=== PATIENT | male | born 1995 | race Caucasian/White ===

== ENCOUNTER 2018-12-29 23:31 | Emergency (ER) | payer OTHER ==
[2018-12-29 23:45] VITALS: BP 145/104; PULSE 121; TEMP 98; BMI 22.2
--- NOTE | 2018-12-29 23:52 | PDOC ---
History of Present Illness - General Chief Complaint: CVA/TIA Stated Complaint: NUMBNESS Time Seen by Provider: 12/29/18 23:52 History Source: Patient Exam Limitations: No Limitations - History of Present Illness Initial Comments: 12/30/18 02:39 23M with no significant PMH presents w/ complaint of all-over numbness x4days. 5d prior, used a THC pen that caused a sensation of generalized all-over numbness. Endorses feeling anxious at baseline. Denies gait abnormality, weakness in extremities, trouble with fine motor function. Denies recent sickness. Brother had a cough, 2 weeks prior. Past History - Travel Traveled outside of the country in the last 30 days: No Close contact w/someone who was outside of country & ill: Yes Do you know what country they traveled to?: [place], grandpr w/ cough - Past Medical History Allergies/Adverse Reactions: Allergies Allergy/AdvReac Type Severity Reaction Status Date / Time shellfish derived Allergy Verified 12/29/18 23:43 Home Medications: Ambulatory Orders NK [No Known Home Medication] 07/06/15 - Surgical History Appendectomy: Yes - Family Disease History Family Disease History: Diabetes: Grandparents, Father, Heart Disease: Grandparents, Other: Sister (throat Ca, lung Ca) - Immunization History Immunization Up to Date: Yes - Suicide/Smoking/Psychosocial Hx Smoking History: Never smoked Have you smoked in the past 12 months: No Information on smoking cessation initiated: No Hx Alcohol Use: No Drug/Substance Use Hx: No Substance Use Type: None Review of Systems - Review of Systems Able to Perform ROS?: No Is the patient limited Danish proficient: No Constitutional: Yes: Malaise. No: Chills, Fever HEENTM: No: Eye Pain, Blurred Vision, Difficulty Swallowing Respiratory: No: Cough, Orthopnea Cardiac (ROS): No: Chest Pain, Irregular Heart Rate, Chest Tightness ABD/GI: No: Abdominal Distended, Constipated, Diarrhea : No: Burning, Incontinence Musculoskeletal: No: Back Pain, Muscle Pain Neurological: Yes: Numbness (diffuse all over numbness) *Physical Exam - Vital Signs Last Vital Signs Temp Pulse Resp BP Pulse Ox 98.0 F 121 H 18 145/104 H 100 12/29/18 23:44 12/29/18 23:44 12/29/18 23:44 12/29/18 23:44 12/29/18 23:44 - Physical Exam General Appearance: Yes: Nourished, Other (anxious-appearing). No: Apparent Distress HEENT: positive: Normal Voice. negative: Pale Conjunctivae, Scleral Icterus (R) , Scleral Icterus (L), Nasal Congestion, Rhinorrhea Neck: positive: Trachea midline Respiratory/Chest: positive: Lungs Clear, Normal Breath Sounds. negative: Respiratory Distress, Labored Respiration Cardiovascular: positive: Regular Rhythm, Regular Rate, S1, S2 Gastrointestinal/Abdominal: positive: Soft. negative: Distended, Guarding, Tenderness Musculoskeletal: negative: Decreased Range of Motion Extremity: positive: Normal Inspection, Normal Range of Motion. negative: Cyanosis, Calf Tenderness Integumentary: positive: Dry, Warm Neurologic: positive: para educator II-XII NML intact, Fully Oriented, Alert, Motor Strength 5/5, Other (normal gait) Medical Decision Making - Medical Decision Making 12/30/18 06:09 - EKG shows sinus tachycardia - repeat vitals HR 102, BP 135/89 - slightly less anxious after Ativan PO - agreeable to discharge with fu with PCP, psych *DC/Admit/Observation/Transfer Diagnosis at time of Disposition: Anxiety - Discharge Dispostion Disposition: HOME Condition at time of disposition: Stable Decision to Admit order: No - Referrals Referrals: Everton May [Non Staff, Medical] - Kandis Oropeza MD [Staff Physician] - - Patient Instructions Printed Discharge Instructions: DI for Numbness/tingling Additional Instructions: You were evaluated for generalized numbness. Your physical exam findings did not reveal any focal neurological deficits. Your EKG showed a slightly elevated heart rate but no signs of heart damage. You were given Ativan for relaxation. Likely your symptoms were related to your recent THC usage. Your symptoms should improve gradually. Please return to the ED if you experience: - severe worsening numbness that prevents performing your daily routine - focal neurological deficits affect a single extremity - severe fever/chills Print Language: KHMER - Post Discharge Activity
--- NOTE | 2018-12-30 00:21 | PDOC ---
Documentation entered by Arnav Marshall SCRIBE, acting as scribe for Chris Palomo MD. Chris Palomo MD: This documentation has been prepared by the Rolando hairston Elijah, SCRIBE, under my direction and personally reviewed by me in its entirety. I confirm that the documentation accurately reflects all work, treatment, procedures, and medical decision making performed by me. Attending Attestation - Resident Resident Name: Oscar Bella - ED Attending Attestation I have performed the following: I have examined & evaluated the patient, The case was reviewed & discussed with the resident, I agree w/resident's findings & plan - HPI HPI: 12/30/18 05:07 23M here with several days of generalized numbness/tingling. Pt states symptoms started after vaping THC. No chest pain, sob, weakness - Physicial Exam PE: 12/30/18 05:08 Agree with exam as documented by resident - Medical Decision Making 12/30/18 05:08 No specific complaint, non-focal exam f/u ekg symptomatic tx re-eval 12/30/18 07:25 symptomatic improvement dc
[2018-12-30] MEDS ORDERED: LORazepam 1 MG TABLET PO ONE (00:31)
[2018-12-30] MEDS ORDERED: LORazepam 0.5 MG TABLET ONE (00:35)
--- NOTE | 2018-12-30 13:55 | EKG ---
Test Reason : Blood Pressure : / mmHG Vent. Rate : 108 BPM Atrial Rate : 108 BPM P-R Int : 166 ms QRS Dur : 082 ms QT Int : 322 ms P-R-T Axes : 064 040 034 degrees QTc Int : 431 ms SINUS TACHYCARDIA WHEN COMPARED WITH ECG OF 06-JUL-2015 19:11, RSR' PATTERN IN V1 IS NO LONGER PRESENT Confirmed by IRWIN WILLS MD ([id number]) on 12/30/2018 1:55:24 PM Referred By: Confirmed By:IRWIN WILLS MD
== END 2018-12-30 03:22 | disposition home or self-care (01) ==
LOC: JER 23:31
DX: F41.9 Anxiety disorder, unspecified (principal)
CPT/HCPCS: 93005; 93010; 99282-25

== ENCOUNTER 2019-05-20 20:31 | Emergency (ER) | payer OTHER ==
[2019-05-20 20:40] VITALS: BP 135/92; PULSE 101; TEMP 99; BMI 22.4
--- NOTE | 2019-05-20 21:29 | PDOC ---
Documentation entered by Ana Martinez SCRIBE, acting as scribe for Ellie Sadler MD. Ellie Sadler MD: This documentation has been prepared by the srinathibe, Ana Martinez SCRIBE, under my direction and personally reviewed by me in its entirety. I confirm that the documentation accurately reflects all work, treatment, procedures, and medical decision making performed by me. History of Present Illness - General Chief Complaint: Head/Neck problem Stated Complaint: NUMBNESS TO EXTREMITIES Time Seen by Provider: 05/20/19 20:33 - History of Present Illness Initial Comments: 05/20/19 21:02 Patient is a 23 year old male with no significant past medical history who presents to the emergency department with his mom at bedside, with numbness and tingling in his extremities. Patient states these symptoms have happened to him in the past and he has given a full work up with no significant findings. He denies any recent fevers, chills, headache or dizziness. He denies any recent nausea, vomit, diarrhea or constipation. He denies any recent chest pain or shortness of breath. He denies any recent dysuria, frequency, urgency or hematuria. Primary Care Physician: Logan May PAST MEDICAL HISTORY: no significant history PAST SURGICAL HISTORY: Appendectomy. FAMILY HISTORY: no pertinent history SOCIAL HISTORY: Pt lives with family and is employed. MEDICATIONS: reviewed ALLERGIES: As per nursing notes General: No fevers or chills, no weakness, no weight loss HEENT: No change in vision. No sore throat,. No ear pain CardioVascular: No chest pain or shortness of breath Respiratory:No cough, or wheezing. Gastrointestinal: no nausea, vomiting, diarrhea or constipation, No rectal bleeding Genitourinary: No dysuria, hematuria, or frequency Musculoskeletal: No joint or muscle pain or swelling Neurologic:+ generalized numbness and tingling. No headache, vertigo, dizziness or loss of consciousness Psychiatric: nor depression Skin: No rashes or easy bruising Endocrine: no increased thirst or abnormal weight change Allergic: no skin or latex allergy All other systems reviewed and normal NEURO: Mental status: The patient alert and is oriented x3. Cranial nerves: Cranial nerves II through XII are intact Fundoscopic exam normal Motor: The upper extremities are 5 over 5 in all muscle groups. The lower extremities are 5 over 5 in all muscle groups. Sensation: Sensation is intact to light touch throughout. Cerebellar: Yixeck-ayodao-mwgh is normal in both upper extremities. Heel-knee- galarza is normal in both lower extremities. Gait: Normal. Heel and toe walking are normal. Tandem gait is normal. 05/20/19 21:26 Assessment and plan: This is a 23-year-old male who comes in complaining of numbness times several months. Numbness is intermittent and comes and goes. The numbness is actually more of a osxk-luq-bsallcy sensation than actual numbness. On my exam patient did not exhibit any numbness but did reports a pins and needle sensation to light touch of his face and bilateral upper and lower extremities. Otherwise patient's neuro exam was negative Discussed with patient the importance of following up with a neurologist to rule out unusual neurological condition such as MS. Patient will contact his primary care doctor and get a referral to the neurologist and follow-up with the neurologist. Patient has had multiple ED visits and work-ups including CAT scan for the his complaints 05/20/19 21:28 Past History - Past Medical History Allergies/Adverse Reactions: Allergies Allergy/AdvReac Type Severity Reaction Status Date / Time shellfish derived Allergy Verified 12/29/18 23:43 Home Medications: Ambulatory Orders NK [No Known Home Medication] 07/06/15 COPD: No - Surgical History Appendectomy: Yes - Immunization History Immunization Up to Date: Yes - Psycho Social/Smoking Cessation Hx Smoking History: Never smoked Have you smoked in the past 12 months: No Hx Alcohol Use: No Drug/Substance Use Hx: No Substance Use Type: None *Physical Exam - Vital Signs Last Vital Signs Temp Pulse Resp BP Pulse Ox 99 F 101 H 16 135/92 100 05/20/19 20:32 05/20/19 20:32 05/20/19 20:32 05/20/19 20:32 05/20/19 20:32 Discharge - Discharge Information Problems reviewed: Yes Clinical Impression/Diagnosis: Numbness and tingling Condition: Stable - Admission No - Follow up/Referral Referrals: Logan May MD [Primary Care Provider] - - Patient Discharge Instructions Additional Instructions: Call your doctor on Wednesday and get a referral to a neurologist. Call the neurologist and get an appointment for soon as you can get in it may take a while to get in as most neurologists are booked well in advance. Return to the emergency department immediately with ANY new, persistent or worsening symptoms. Continue any medications as previously prescribed by your physician. You should follow up with your primary doctor as soon as possible regarding today's emergency department visit. . Please make sure your doctor reviews the results of your emergency evaluation. Thank you for coming to the Emergency Department today for your care. It was a pleasure to see you today. Please note that your evaluation is INCOMPLETE until you follow-up with your doctor. - Post Discharge Activity
== END 2019-05-20 21:34 | disposition home or self-care (01) ==
LOC: FER 20:31
DX: R20.0 Anesthesia of skin (principal); R20.2 Paresthesia of skin; Z91.013 Allergy to seafood
CPT/HCPCS: 99281-25

== ENCOUNTER 2020-06-22 12:28 | Emergency (ER) | payer OTHER ==
[2020-06-22 12:54] VITALS: BMI 21.9
[2020-06-22] MEDS ORDERED: SODIUM CHLORIDE 1,000 ML IV STA (13:14)
[2020-06-22] MEDS ORDERED: ONDANSETRON 4 MG/2 ML VIAL IVPUSH ONE (13:53)
[2020-06-22] MEDS ORDERED: ONDANSETRON 4 MG/2 ML VIAL ONE (14:03)
[2020-06-22 14:30] LABS: BASO % 0.5 % (0-2.0); EOS % 0.4 % (0-4.5); HEMATOCRIT 44.6 % (35.4-49); HEMOGLOBIN 15.5 GM/dL (11.7-16.9); LYMPH % 18.2 % (8-40); MCH 29.1 pg (25.7-33.7); MCHC 34.8 g/dl (32.0-35.9); MEAN CELL VOLUME 83.5 fl (80-96); MEAN PLT VOLUME 9.3 fl (7.5-11.1); MONO % 7.7 % (3.8-10.2); NEUT % 73.2 % (42.8-82.8); PLATELET COUNT 235 K/MM3 (134-434); RBC 5.34 M/mm3 (4.00-5.60); RDW 12.9 % (11.9-15.9); WHITE BLOOD COUNT 7.7 K/mm3 (4.0-10.0)
[2020-06-22 14:53] LABS: CHLORIDE 106 mmol/L (98-107); POTASSIUM 4.3 mmol/L (3.5-5.1); SODIUM 138 mmol/L (136-145)
[2020-06-22 14:55] LABS: ANION GAP 8 MMOL/L (8-16); CALCIUM 9.3 mg/dL (8.5-10.1); CO2 24 mmol/L (21-32); GLUCOSE,RANDOM 83 mg/dL (74-106)
[2020-06-22 14:56] LABS: ALBUMIN 4.4 g/dl (3.4-5.0); BLOOD UREA NITROGEN 10.4 mg/dL (7-18); LIPASE 95 U/L (73-393)
[2020-06-22 14:58] LABS: CREATININE 0.9 mg/dL (0.55-1.3); SGPT/ALT 49 U/L (13-61)
[2020-06-22 14:59] LABS: SGOT/AST 20 U/L (15-37)
[2020-06-22 15:00] LABS: TOT PROT 8.2 g/dl (6.4-8.2)
[2020-06-22 15:01] LABS: ALK PHOS 74 U/L (45-117)
[2020-06-22 16:56] VITALS: BP 133/78; PULSE 86; TEMP 98.2
[2020-06-22 17:11] LABS: PH,URINE 5.5 (5.0-8.0); URINE APPEARANCE CLEAR; URINE BILIRUBIN NEGATIVE (NEGATIVE); URINE COLOR YELLOW; URINE GLUCOSE (UA) NEGATIVE (NEGATIVE); URINE KETONE 1+ (NEGATIVE); URINE LEUK ESTERASE NEGATIVE (NEGATIVE); URINE NITRITE NEGATIVE (NEGATIVE); URINE PROTEIN NEGATIVE (NEGATIVE); URINE UROBILINOGEN 0.2 mg/dL (0.2-1.0)
== END 2020-06-22 16:50 | disposition home or self-care (01) ==
LOC: JER 12:28
PROC: 3E033NZ Introduction of Analgesics, Hypnotics, Sedatives into Peripheral Vein, Percutaneous Approach (ICD-10-PCS; principal; 2020-06-22)
PROC: 3E0337Z Introduction of Electrolytic and Water Balance Substance into Peripheral Vein, Percutaneous Approach (ICD-10-PCS; 2020-06-22)
DX: B34.9 Viral infection, unspecified (principal); Z11.52 Encounter for screening for COVID-19
CPT/HCPCS: 36415; 71046-TC-FY; 80053; 81003; 82550; 82553; 83690; 84484; 85025; 87086; 93005; 93010; 99285-25; C9803; U0003